=== PATIENT | female | born 1995 | race Hispanic/Latino ===

== ENCOUNTER 2017-10-24 20:29 | Emergency (ER) | payer SELFPAY ==
[2017-10-24 21:04] LABS: BASOPHILS % (AUTO) 1.2 % (0.0-5.0); EOSINOPHILS % (AUTO) 2.5 % (0.0-8.0); HEMATOCRIT 38.5 % (36-48); LYMPHOCYTES % (AUTO) 38.6 % (21.0-51.0); MEAN CORPUSCULAR HGB CONC 33.4 g/dL (32.0-36.0); MEAN CORPUSCULAR VOLUME 83.9 fL (79-99); MONOCYTES % (AUTO) 8.4 % (3.0-13.0); NEUTROPHILS % (AUTO) 49.3 % (40.0-77.0); PLATELET COUNT (AUTO) 187 K/uL (130-400); RED BLOOD CELL COUNT(AUTO) 4.59 MIL/uL (4.00-5.50); RED CELL DISTRIBUTION WIDTH 18.7 % (11.0-15.5); WHITE BLOOD COUNT (AUTO) 5.5 K/uL (4.8-10.8)
[2017-10-24 21:52] LABS: CREATININE 0.9 mg/dL (0.5-1.5); POTASSIUM 3.9 mmol/L (3.5-5.1)
[2017-10-24 21:57] LABS: ALBUMIN 3.5 g/dL (3.5-5.0); BILIRUBIN,TOTAL 0.3 mg/dL (0.2-1.0); TOTAL PROTEIN, SERUM 6.3 g/dL (6.0-8.3)
[2017-10-24 22:17] LABS: APPEARANCE,URINE Cloudy (CLEAR); BILIRUBIN,URINE Negative (NEGATIVE); COLOR,URINE Yellow (YELLOW); GLUCOSE, URINE (UA) Negative (NEGATIVE); KETONES,URINE Trace mg/dL (NEGATIVE); LEUKOCYTE ESTERASE ,URINE Negative (NEGATIVE); NITRATE,URINE Negative (NEGATIVE); OCCULT BLOOD,URINE Negative (NEGATIVE); PROTEIN,URINE Negative (NEGATIVE)
[2017-10-24 22:36] LABS: HCG,QUAL RESULT NEGATIVE (NEGATIVE)
[2017-10-24] MEDS ORDERED: SODIUM CHLORIDE 0.9% 1000ML 1,000 ML IV ONE (22:37)
[2017-10-24 22:53] LABS: BACTERIA,URINE Moderate /HPF (None Seen); MUCUS,URINE Many LPF (None Seen); RBC,URINE 0-1 /HPF (0-1); SQUAMOUS EPITHELIAL CELL,UR Moderate /LPF (0-2); WBC,URINE 0-1 /HPF (0-1)
== END 2017-10-25 00:53 | disposition home or self-care (01) ==
LOC: EDH 20:29
DX: R55 Syncope and collapse (principal); R42 Dizziness and giddiness
CPT/HCPCS: 36415; 80053; 81001; 81025; 85025; 87804 ×2; 93005; 96360; 96361; 99285; J7030

== ENCOUNTER 2019-02-10 17:05 | Emergency (ER) | payer OTHER | END 2019-02-10 17:47 | disposition home or self-care (01) | LOC: EDH 17:05 | DX: M72.2 Plantar fascial fibromatosis (principal) | CPT/HCPCS: 99281 ==

== ENCOUNTER 2023-10-03 09:56 | Emergency (ER) | payer BC, OTHER ==
[~2023-10-03] VITALS: Ht 165.1 cm; Wt 62.6 kg
[2023-10-03] MEDS ORDERED: DICL500C PO (12:39)
[2023-10-03 12:57] VITALS: BP 108/65; PULSE 89; RESP 18; O2SAT 100
== END 2023-10-03 12:58 | disposition home or self-care (01) ==
LOC: EDH 09:56
DX: N61.0 Mastitis without abscess (principal)